=== PATIENT | female | born 1990 | race African-American/Black ===

== ENCOUNTER → 2018-03-17 | Outpatient (CLI) | payer OTHER ==
[2018-03-17 16:17] LABS: ABSOLUTE BASOPHILS 0.1 thou/uL (0.0-0.2); ABSOLUTE LYMPHOCYTES 2.4 thou/uL (0.8-5.3); ABSOLUTE MONOCYTES 0.5 thou/uL (0.0-1.2); ABSOLUTE NEUTROPHILS 4.7 thou/uL (1.6-8.1); BASOPHILS 0.8 %; EOSINOPHILS 0.6 %; HEMATOCRIT 37.7 % (37.0-47.0); HEMOGLOBIN 12.3 gm/dL (12.0-15.0); LYMPHOCYTES 31.6 %; MCH 28.1 pg (26.0-34.0); MCHC 32.5 g/dL (28.0-37.0); MCV 86.4 fL (80.0-100.0); MONOCYTES 5.9 %; MPV 7.1 fl. (7.2-11.1); NUCLEATED RBCS 0 /100WBC; PLATELET COUNT* 315 thou/uL (150-400); POLYS 61.1 %; RBC 4.37 mil/uL (4.20-5.00); RDW-CV 14.2 % (10.5-14.5); WBC 7.7 thou/uL (4.0-11.0)
[2018-03-17 16:30] LABS: ALBUMIN 3.5 g/dL (3.4-5.0); CALCIUM 8.5 mg/dL (8.5-10.1); POTASSIUM 3.7 mmol/L (3.5-5.1); TOTAL BILIRUBIN 0.1 mg/dL (<0.1-1.0); TOTAL PROTEIN 6.9 g/dL (6.4-8.2)
[2018-03-17 18:15] LABS: ESR (SEDRATE) 1 mm/hr (0-20)
[2018-03-18 19:11] LABS: GLYCOHEMOGLOBIN (HGB A1C) 5.5 % (4.8-5.6)
== END ==
LOC: M.LAB 15:57
PROVIDERS: Internal Medicine
DX: I10 Essential (primary) hypertension (principal); R53.82 Chronic fatigue, unspecified; R73.01 Impaired fasting glucose; R52 Pain, unspecified; Z79.899 Other long term (current) drug therapy

== ENCOUNTER → 2020-03-02 | Outpatient (CLI) | payer OTHER | LOC: M.LAB 11:36 | PROVIDERS: ATTEND Internal Medicine Cardiovascular Disease | DX: Z11.59 Encounter for screening for other viral diseases (principal) ==

== ENCOUNTER → 2021-01-30 | Outpatient (CLI) | payer OTHER ==
[2021-01-30 16:53] LABS: ABSOLUTE LYMPHOCYTES 2.5 thou/uL (0.8-5.3); ABSOLUTE MONOCYTES 0.5 thou/uL (0.0-1.2); ABSOLUTE NEUTROPHILS 5.4 thou/uL (1.6-8.1); BASOPHILS 0.6 %; EOSINOPHILS 0.6 %; HEMATOCRIT 36.9 % (37.0-47.0); HEMOGLOBIN 12.2 gm/dL (12.0-15.0); LYMPHOCYTES 29.7 %; MCH 29.3 pg (26.0-34.0); MCHC 33.1 g/dL (28.0-37.0); MCV 88.4 fL (80.0-100.0); MONOCYTES 6.1 %; MPV 6.9 fl. (7.2-11.1); NUCLEATED RBCS 0 /100WBC; PLATELET COUNT* 296 thou/uL (150-400); RBC 4.18 mil/uL (4.20-5.00); RDW-CV 13.5 % (10.5-14.5); WBC 8.6 thou/uL (4.0-11.0)
[2021-01-30 17:06] LABS: ALBUMIN 3.7 g/dL (3.4-5.0); ALKALINE PHOSPHATASE 49 U/L (46-116); ANION GAP 7 mmol/L (7-16); BUN 9 mg/dL (7-18); CALCIUM 8.4 mg/dL (8.5-10.1); CHLORIDE 104 mmol/L (98-107); CHOLESTEROL 104 mg/dL (<200); CO2 27 mmol/L (21-32); GLUCOSE 89 mg/dL (70-99); HDL CHOLESTEROL 57 mg/dL (>40); LDL CHOLESTEROL 42 mg/dL (<100); POTASSIUM 3.3 mmol/L (3.5-5.1); SGOT 11 U/L (15-37); SGPT 9 U/L (30-65); SODIUM 138 mmol/L (136-145); TC:HDL 1.8 Ratio (Not establshd); TRIGLYCERIDE 28 mg/dL (<150); VLDL 6 mg/dL (<40)
[2021-01-30 17:08] LABS: URINE BILIRUBIN NEGATIVE (Negative); URINE BLOOD TRACE (Negative); URINE CLARITY CLEAR; URINE COLOR YELLOW; URINE GLUCOSE-RANDOM NEGATIVE (Negative); URINE KETONES TRACE (Negative); URINE LEUKOCYTES-REFLEX 1+ (Negative); URINE NITRITE-REFLEX NEGATIVE (Negative); URINE PROTEIN NEGATIVE (Negative); URINE SPECIFIC GRAVITY 1.025 (1.005-1.030); URINE UROBILINOGEN 0.2 E.U./dl (0.2-1.0)
[2021-01-30 17:08] LABS: SERUM ASSESSMENT Clear; TOTAL BILIRUBIN < 0.1 mg/dL (<0.1-1.0)
[2021-01-30 17:15] LABS: BACTERIA-REFLEX 1-9 Few /HPF (None Seen); CASTS None Seen /LPF (None Seen); CRYSTALS None Seen /LPF (None Seen); MUCUS 0-3 Light strn/LPF (None Seen); SQUAMOUS 4-10 Moderate /LPF (0-3); URINE RBC 0-2 Rare /HPF (0-2); URINE WBC-REFLEX 0-5 Rare /HPF (0-5)
== END ==
LOC: M.LAB 16:26
PROVIDERS: ATTEND Nurse Practitioner
DX: Z00.00 Encounter for general adult medical examination without abnormal findings (principal)

== ENCOUNTER → 2021-03-19 | Outpatient (CLI) | payer OTHER | LOC: M.LAB 16:29 | PROVIDERS: ATTEND Nurse Practitioner Family | DX: L70.0 Acne vulgaris (principal) ==